=== PATIENT | female | born 1945 | race Caucasian/White ===

== ENCOUNTER → 2018-11-23 | Outpatient (REF) | payer MEDICARE ==
[~2018-11-23] MED LIST: ALENDRONATE70 MG PO; CIPROFLOXACN500 MG PO; MELOXICAM7.5 MG PO
[2018-11-23 09:42] LABS: URINE BILIRUBIN - DIPSTICK NEGATIVE (NEGATIVE); URINE BLOOD DIPSTICK NEGATIVE (NEGATIVE); URINE COLOR YELLOW; URINE GLUCOSE - DIPSTICK NEGATIVE (NEGATIVE); URINE KETONE NEGATIVE (NEGATIVE); URINE LEUK ESTERASE NEGATIVE (NEGATIVE); URINE NITRITE - DIPSTICK NEGATIVE (Negative); URINE PROTEIN - DIPSTICK NEGATIVE (NEG-TRACE); URINE UROBILINOGEN - DIPSTICK 0.2 E.U./dL (0.2)
== END | disposition home or self-care (01) ==
LOC: LABSPEC 09:03
PROVIDERS: ATTEND Nurse Practitioner Family
DX: N39.0 Urinary tract infection, site not specified (principal)